=== PATIENT | male | born 1955 | race Caucasian/White ===

== ENCOUNTER 2023-12-22 08:21 | Day surgery (SDC) | payer OTHER, SELFPAY ==
[2023-11-18 14:05] VITALS: BMI 32.2
[2023-12-02 11:42] VITALS: BMI 33.2
[2023-12-22 09:25] VITALS: BMI 31.6
[2023-12-22 09:26] VITALS: BP 135/76; PULSE 77; RESP 18; TEMP 37.2; O2SAT 98
--- NOTE | 2023-12-22 09:34 | PM.HPGS ---
History of Present Illness History of Present Illness Consent: Risks, benefits, and alternatives have been discussed and questions answered. Patient agrees to proceed with procedure. Chief complaint: History of colon polyp Narrative: Frankie Coreas is a 68 year old male presents for screening colonoscopy. Patient was found to have benign adenomatous colon polyp at the time of previous colonoscopy in 2019. Patient reports his current weight appetite and bowel movements are normal. He denies abdominal pain. Patient has had no bleeding. Family history is noncontributory. Review of Systems Review of Systems: All systems reviewed & are unremarkable except as noted in HPI and below PMFSH Past Medical History Medical History (Updated 12/22/23 @ 09:37 by Doc Dalal MD) Allergies Mixed hyperlipidemia Family History Family History (Updated 11/10/23 @ 11:25 by Anni Park CMA) Father Family history of malignant neoplasm Hypertension Glaucoma Mother Hypertension Social History Social History (Updated 11/10/23 @ 11:26 by Anni Park CMA) Smoking status: Former smoker Second hand tobacco smoke exposure: No Alcohol intake: current Drinks per week: 1 Alcohol use details: occasional Substance use: never Substance use type: does not use Do You Feel Safe in your Home?: Yes Lack of Transportation: No Lack of Food: Never True Current Housing: I Have Housing Concerned About Future Housing: No Difficulty Paying Gas/Electric Bills: No Difficulty Paying for Meds: No Currently Unemployed: No Difficulty w/ Childcare or Family Care: No Living arrangements: with family Occupation/Education: retired Gender identity (if verbalized by the patient): Male Sexual Orientation (if Verbalized by the Patient): Straight or Heterosexual Spiritual care concerns: No Meds Home Medications and Allergies Home Medications Medication Instructions Recorded Confirmed Type cholecalciferol (vitamin D3) 25 25 mcg PO DAILY 11/10/23 12/22/23 History mcg (1,000 unit) capsule [id number] 250 mg-dha 90 1 cap PO DAILY 11/10/23 12/22/23 History mg-epa 160 cs-kowk-vrag-zeax capsule (Ocuvite Adult 50 Plus) atorvastatin 80 mg tablet 80 mg PO DAILY #90 tabs 11/11/23 12/22/23 Rx omega-3 fatty acids 150 mg-fish 1 cap PO DAILY 12/02/23 12/22/23 History oil 400 mg capsule (Fish Oil Pearls) Allergies Allergy/AdvReac Type Severity Reaction Status Date / Time Penicillins Allergy Intermediate Hives Verified 12/22/23 09:15 Vital Signs Vital Signs - 24 hr 12/22/23 09:26 Temperature 99 F Pulse Rate 77 Respiratory Rate 18 Blood Pressure 135/76 Pulse Oximetry 98 Oxygen Delivery Room Air Exam Narrative: Physical exam reveals patient to be alert. Vital signs stable. HEENT exam is unremarkable. Patient is anicteric. Lungs are clear to auscultation and to percussion. heart is without murmur or extra sounds. Abdomen bowel sounds are present soft nontender with no organomegaly. Digital an external rectal exam is normal. Assessment and Plan Assessment and plan (1) History of colon polyps: Code(s): Z86.0100 - Personal history of colon polyps, unspecified Status: Acute Assessment and Plan: Patient has a history of benign adenomatous colon polyp removed from the colon in 2019. Plan for surveillance screening colonoscopy at this time.
[2023-12-22] MEDS: LACTATED RINGERS 1,000 ML 150 ML IV CONT (09:35)
--- NOTE | 2023-12-22 10:42 | WPDANESEPPF ---
Anes - Initial Pre Proc Eval Procedure: Operation Date: 12/22/23 10:30 Proposed Procedures p Screening Colonoscopy - Doc Dalal MD Date/Time: 12/22/23 10:42 Surgeon: Doc Dalal MD Pre Op Diagnosis: neoplasm screening Pre Op Diagnosis: History of colon polyp Patient Data Age: 68 Gender: M Height: 1.78 m Weight: 100 kg Last Vital Signs Temp 37.2 C 12/22/23 09:26 Pulse 77 12/22/23 09:26 Resp 18 12/22/23 09:26 BP 135/76 12/22/23 09:26 Pulse Ox 98 12/22/23 09:26 O2 Del Method Room Air 12/22/23 09:26 Allergies Allergy/AdvReac Type Severity Reaction Status Date / Time Penicillins Allergy Intermediate Hives Verified 12/22/23 09:15 Home Medications Medication Instructions Recorded Confirmed Type cholecalciferol (vitamin D3) 25 25 mcg PO DAILY 11/10/23 12/22/23 History mcg (1,000 unit) capsule [id number] 250 mg-dha 90 1 cap PO DAILY 11/10/23 12/22/23 History mg-epa 160 qs-yiin-ksft-zeax capsule (Ocuvite Adult 50 Plus) atorvastatin 80 mg tablet 80 mg PO DAILY #90 tabs 11/11/23 12/22/23 Rx omega-3 fatty acids 150 mg-fish 1 cap PO DAILY 12/02/23 12/22/23 History oil 400 mg capsule (Fish Oil Pearls) Patient hx anesthesia problems: none Family hx anesthesia problems: none Results Review: All pre-operative results and documents have been reviewed as part of the pre-operative evaluation. [facility] Past Medical History Medical History Allergies Mixed hyperlipidemia Family History Family History Father Family history of malignant neoplasm Hypertension Glaucoma Mother Hypertension Social History Social History Smoking status: Former smoker Second hand tobacco smoke exposure: No Alcohol intake: current Drinks per week: 1 Alcohol use details: occasional Substance use: never Substance use type: does not use Do You Feel Safe in your Home?: Yes Lack of Transportation: No Lack of Food: Never True Current Housing: I Have Housing Concerned About Future Housing: No Difficulty Paying Gas/Electric Bills: No Difficulty Paying for Meds: No Currently Unemployed: No Difficulty w/ Childcare or Family Care: No Living arrangements: with family Occupation/Education: retired Gender identity (if verbalized by the patient): Male Sexual Orientation (if Verbalized by the Patient): Straight or Heterosexual Spiritual care concerns: No Anes - Eval Final PreProcedure Day of Procedure 12/22/23 10:42 Patient weight: obese Heart: regular rate and rhythm Lungs: normal air movement Airway: Mallampati scale class II Neurological: alert and oriented Last oral intake: >/= 8 hours ASA classification: II Emergent: no Anesthetic plan: proceed Anesthesia type and monitoring: general GIVS Results Review: All pre-operative results and documents have been reviewed as part of the pre-operative evaluation. Informed Consent: The patient's anesthetic plan and its attendant risks and benefits were discussed with the patient/family/POA. Questions were solicited and answers provided to the satisfaction of the patient/family/POA.
[2023-12-22 11:08] VITALS: BP 114/72; PULSE 75; RESP 15; O2SAT 96
[2023-12-22 11:18] VITALS: BP 111/97; PULSE 68; RESP 14; O2SAT 96
[2023-12-22 11:28] VITALS: BP 117/83; PULSE 62; RESP 15; O2SAT 97
--- NOTE | 2023-12-22 12:42 | WPDANESPN ---
Anes - Prog Note Post-Op Date/Time: 12/22/23 12:42 Cardiovascular status: normal Respiratory status: normal Airway patency: baseline Mental status: baseline Post-Op hydration status: normal Vital Signs: Last Vital Signs Temp 37.2 C 12/22/23 09:26 Pulse 62 12/22/23 11:28 Resp 15 12/22/23 11:28 BP 117/83 12/22/23 11:28 Pulse Ox 97 12/22/23 11:28 O2 Del Method Room Air 12/22/23 11:28 Pain Score (VAS): 0 I/O: Intake & Output 12/21/23 12/22/23 12/22/23 23:59 07:59 15:59 Intake Total 600 Balance 600 Post-procedural complaints: none Patient Feedback: Patient satisfied with anesthetic care. Other Findings: Patient vital signs back to baseline. Patient denies nausea and vomiting. Patient's pain under control. Patient OK for discharge.
== END 2023-12-22 11:39 | disposition home or self-care (01) ==
PROVIDERS: PCP Family Medicine; Visit Provider Internal Medicine Gastroenterology
PROC: 0DJD8ZZ Inspection of Lower Intestinal Tract, Via Natural or Artificial Opening Endoscopic (ICD-10-PCS; CPT 45378; principal; 2023-12-22 10:30)
DX: Z86.0100 Personal history of colon polyps, unspecified (principal); Z12.11 Encounter for screening for malignant neoplasm of colon; K64.8 Other hemorrhoids
CPT/HCPCS: 45378

== ENCOUNTER 2024-02-09 07:43 | Outpatient (RCR) | payer OTHER, SELFPAY ==
--- NOTE | 2024-02-09 09:03 | OPREHPOC ---
Outpatient Therapy Plan of Care This is a Multidisciplinary Plan of Care that may contain components documented by all disciplines (PT, OT, and ST.) PT Problem 1 PT Problem #1 Knowledge Deficit PT Goal 1 Goal / Goal Update *indep with HEP Target Visit 6 PT Goal 2 Goal / Goal Update * pt voice basic understanding of vestibular system and safety with mobility Target Visit 6 PT Problem 2 PT Problem #2 Impaired Vestibular System PT Goal 1 Goal / Goal Update pt perform without any vestibular issues: * supine/sit * sit/stand * walking 50' with head motions R/L * eye tracking to R/L Target Visit 6
--- NOTE | 2024-02-09 09:03 | PTOPEVAL1 ---
Assessment and note entered by Nicky Gardner PT Evaluation Information Assessment Status Evaluation ICD-10 Condition Codes (PT) Dizziness and Giddiness R42 Onset Dec 30, 2023 Subjective Information no history of dizziness; had spinning with lying down in bed and with getting up from bed, sitting up; symptoms have decreased- now occurs with sitting to standing, walking; when get up at night to go to bathroom-- feel like walking side/side and shifting balance symptoms are not constant, ease when up and move around little activity: retired, active, walk for fitness every AM; Reported Pain Level Pain Score 1: Self Report Assessment PT Clinical Summary Frankie has the diagnosis of dizziness. He reports onset about 6 weeks ago, symptoms have decreased since onset. He has not had any issues with dizziness in the past. Dizziness Handicap Index rating of 10% limitation in activity level. Medical provider gave him info for [employer] and he has been performing. Symptoms of head feels foggy, off balance when walking to bathroom at night, supine to sit feels little funny. Risk factors for dizziness: neck pain, sinus issues, bifocal glasses with cataract forming, does not drink much water. BP in sitting 114/79 and with standing 140/87. Testing was negative for BPPV today. Eye tracking was negative, except slight fuzzy vision with eye tracking R/L. Education provided to pt with handouts for general vestibular info, risk factors for dizziness, HEP- eye tracking R/L and to increase water intake, monitor S/S, if have symptoms, hold position until clears and safety with getting up at night- turn light on. Skilled PT services are indicated for vestibular rehab and education for safety with mobility, with education to pt. Plan of Care Interventions Neuro Re-education,Patient/Caregiver Education, Therapeutic Activities,Therapeutic Exercise PT Services Indicated Yes Treatment Frequency and 1-2x/wk for 6 visits Duration These treatments will address the objective and functional deficits as defined above. The patient will be advanced safely and appropriately in order for the patient to progress towards his/her prior level of function. Additional exercises will be introduced and as well as a comprehensive home exercise program upon discharge, if needed, ?to ensure carryover of functional gains achieved in the clinic. This treatment plan has been reviewed and agreement upon by the patient.
--- NOTE | 2024-04-02 09:00 | PTOPDC ---
Assessment and note entered by Nicky Gardner, PT Assessment Status Discharge - Pt Not Present ICD-10 Condition Codes (PT) Dizziness and Giddiness R42 Onset Dec 30, 2023 Subjective Information pt was not seen this date. Assessment PT Clinical Summary Frankie had the PT evaluation on February 08 for vestibular/dizziness. He did not return for any further treatment. Discharge PT. The goals were not addressed. Plan of Care PT Services Indicated No
== END 2024-04-02 14:14 | disposition home or self-care (01) ==
LOC: ANHPT 07:43
PROVIDERS: PCP Family Medicine; Visit Provider Student in an Organized Health Care Education/Training Program
DX: R42 Dizziness and giddiness (principal)
CPT/HCPCS: 97110; 97161; 97530

== ENCOUNTER 2024-05-09 09:43 | Outpatient (CLI) | payer OTHER, SELFPAY ==
--- OUTSIDE RECORDS SUMMARY | 2024-05-09 10:32 | XMS_ITS | Clinical Summary ---
Author Organization [facility] Address [address] [place] [id number] Care Team Providers Care Farmworker Grain Name Role Phone Wesly Simmons MD Primary Care Provider [phone] Social History Tobacco Use Types Packs/Day Years Used Date Smoking Tobacco: Never Assessed Sex and Gender Information Value Date Recorded Sex Assigned at Not on file Legal Sex Male 7:48 PM CDT Gender Identity Not on file Sexual Orientation Not on file Plan of Treatment Health Maintenance Due Date Last Done Comments Colorectal Cancer Screening Colonoscopy (10 Years) 1954 Hepatitis C 1972 DTaP, Tdap and Td Vaccines ( 1 - Tdap) 1973 Zoster Vaccines (1 of 2) 2004 Pneumococcal Vaccine: 65+ Ye ars (1 of 1 - PCV) 06/03/2019 COVID-19 Vaccine ( - 2023-2 5 season) 2023 Influenza Adult (#1) 2023 RSV Immunization or 60+ Years (1 - 1-dose 75+ series) 2029 Meningococcal B Vaccine Aged Out No l onger eligible based on patient's age to complete this topic Meningococcal Vaccine Aged Out No wendy ken eligible based on patient's age to complete this topic RSV Immunizations Under 20 Months Aged Out No longer eligible based on patient's age to complete this topic Care Teams Farmworker Grain Relationship Specialty Start Date End Date Wesly Simmons MD [address] [place] [address] PCP - General 06/21/13
--- OUTSIDE RECORDS SUMMARY | 2024-05-09 10:32 | XMS_ITS | Clinical Summary ---
Author Organization [facility] Address [address] [address] Phone Care Team Providers Care Subpoena Server Name Role Phone Nara Romero MD Primary Care Provi louis Social History Tobacco Use Types Packs/Day Years Used Date Smoking Tobacco: Never Assessed Sex and Gender Information Value Date Recorded Sex Assigned at Not on file Legal Sex Male 11:25 PM CDT Gender Identity Not on file Sexual Orientation Not on file Plan of Treatment Health Maintenance Due Date Last Done Comments Hepatitis C Virus (HCV) Screening 1955 TdaP Immunization 1955 Cologuard 2004 Immunochemical Fecal Occult Blood 2004 Pneumococcal Immunization (5 0+ years) (1 of 1 - PCV) 2004 Zoster Immunization (1 of 2) 2004 PSA Discussion 2009 Colonoscopy 07/20/2023 07/19/2018 Colorectal Cancer Screening 07/20/2023 Influenza Immunization (#1) 2023 SARS-COV-2 Immunization ( season) 2023 Respiratory Syncytial Virus (RSV) Immunization (Adult) (1 - 1-dose 75+ series) 2029 07/19/2018 Hepatitis B Immunization Aged Out No longer eligible based on patient's age to complete this topic Meningococcal Immunization (ACWY) Aged Out No longer eligible based on patient's age to complete this topic Rotavirus Immunization Aged Out No lo nger eligible based on patient's age to complete this topic Procedures Procedure Name Priority Date/Time Associated Diagnosis Comments COLONOSCOPY Routine 07/19/2018 from Last 3 Months or Most Recently Relevant to Health Maintenance Results * COLONOSCOPY (07/19/2018) Doc Morataya DO PROCEDURE/MINOR SURGICAL ORDERA BLES Final Result from Last 3 Months or Most Recently Relevant to Health Maintenance Care Teams Subpoena Server Relationship Specialty Start Date End Date Nara Romero MD [address] [facility] [place] [address] PCP - General Family Medicine 07/25/18
[2024-05-09 10:34] LABS: Alanine Aminotransferase 52 U/L (6-50); Albumin Level 4.5 g/dL (3.5-5.1); Alkaline Phosphatase 59 U/L (38-126); Anion Gap 9 mmol/L (4-12); Aspartate Amino Transferase 32 U/L (17-59); Bilirubin,Total 0.7 mg/dL (0.2-1.3); Blood Urea Nitrogen 19 mg/dL (9-20); Calcium 9.1 mg/dL (8.4-10.2); Carbon Dioxide 27 mmol/L (22-30); Chloride 105 mmol/L (98-107); Cholesterol 148 mg/dL (0-200); Estimated Glomerular Filt Rate > 60; Glucose 99 mg/dL (65-110); HDL Direct 34 mg/dL; Potassium 4.2 mmol/L (3.4-5.0); Sodium 141 mmol/L (137-145); Triglycerides 176 mg/dL (<150)
[2024-05-09 10:45] LABS: LDL Cholesterol Direct 71 mg/dL
== END 2024-05-09 09:44 | disposition home or self-care (01) ==
LOC: ANHLAB 09:44
PROVIDERS: PCP Family Medicine; Visit Provider Student in an Organized Health Care Education/Training Program
DX: E78.2 Mixed hyperlipidemia (principal); Z00.00 Encounter for general adult medical examination without abnormal findings
CPT/HCPCS: 36415; 80053; 80061

== ENCOUNTER 2024-11-13 09:49 | Outpatient (CLI) | payer OTHER, SELFPAY ==
[2024-11-13 10:52] LABS: Alanine Aminotransferase 45 U/L (6-50); Albumin Level 4.2 g/dL (3.5-5.1); Alkaline Phosphatase 55 U/L (38-126); Anion Gap 6 mmol/L (4-12); Aspartate Amino Transferase 34 U/L (17-59); Bilirubin,Total 0.8 mg/dL (0.2-1.3); Blood Urea Nitrogen 15 mg/dL (9-20); Calcium 9.2 mg/dL (8.4-10.2); Carbon Dioxide 28 mmol/L (22-30); Chloride 106 mmol/L (98-107); Cholesterol 153 mg/dL (0-200); Estimated Glomerular Filt Rate > 60; Glucose 98 mg/dL (65-110); HDL Direct 32 mg/dL; Potassium 4.1 mmol/L (3.4-5.0); Sodium 140 mmol/L (137-145); Total Protein 6.8 g/dL (6.3-8.2); Triglycerides 219 mg/dL (<150)
--- OUTSIDE RECORDS SUMMARY | 2024-11-13 11:16 | XMS_ITS | Clinical Summary ---
Author Organization [facility] Address [address] [address] Phone Care Team Providers Care Quartz Miner Name Role Phone Nara Romero MD Primary [...] (HCV) Screening 1955 TdaP Immunization 1955 Cologuard 06/03/1999 Immunochemical Fecal Occult Blood 06/03/1999 Pneumococcal Immunization (5 0+ years) (1 of 1 - PCV) 2004 Zoster Immunization (1 of 2) 2004 Colonoscopy 07/20/2023 07/19/2018 Colorectal Cancer Screening 07/20/2023 SARS-COV-2 Immunization (1 - 2023- season) 2023 Influenza Immunization (#1) 2024 Respiratory Syncytial Virus (RSV) Immunization (Adult) (1 - 1-dose 75+ series) 2029 Hepatitis B Immunization Aged Out No longer eligible based on patient's age to complete this topic Human Papillomavirus (HPV) Immunization Aged Out No longer eligible b ased on patient's age to complete this topic [...] Recently Relevant to Health Maintenance Care Teams Quartz Miner Relationship Specialty Start Date End Date Nara Romero MD [address] [place] [address] PCP - General Family Medicine 07/25/18
[2024-11-13 11:26] LABS: Prostate Specific Antigen 0.3 ng/mL (< OR = 4.0)
== END 2024-11-13 09:50 | disposition home or self-care (01) ==
LOC: ANHLAB 09:50
PROVIDERS: PCP Family Medicine; Visit Provider Student in an Organized Health Care Education/Training Program
DX: E78.2 Mixed hyperlipidemia (principal); Z12.5 Encounter for screening for malignant neoplasm of prostate
CPT/HCPCS: 36415; 80053; 80061; 84153; G0103